=== PATIENT | female | born 1995 | race Caucasian/White ===

== ENCOUNTER 2016-12-24 20:31 | Emergency (ER) | payer MEDICARE ==
[~2016-12-24 20:31] MED LIST: ELAVIL 25 MG TA25 MG PO; GLUCOPHAGE1000 MG PO; HYDROCHLOROTHIA25 MG PO; INVOKANA300 MG PO; LOFIBRA160 MG PO; NEURONTIN 400400 MG PO; NORCO 7.5-3251 EACH PO; WELLBUTRIN SR150 M1 PO; ZESTRIL20 MG PO
[2016-12-25 01:19] LABS: HEMOGLOBIN 13.2 gm/dl (12.3-15.3); RED BLOOD COUNT 4.42 M/UL (4.00-5.10); WHITE BLOOD COUNT 12.7 K/UL (4.5-11.0)
[2016-12-25 01:39] LABS: BUN/CREATININE RATIO 12 (0-10)
== END 2016-12-25 03:45 | disposition home or self-care (01) ==
LOC: ER1 20:31
PROVIDERS: Physician Assistant Medical
DX: N39.0 Urinary tract infection, site not specified (principal); E11.9 Type 2 diabetes mellitus without complications; I10 Essential (primary) hypertension; F17.210 Nicotine dependence, cigarettes, uncomplicated; Z79.4 Long term (current) use of insulin
CPT/HCPCS: 80053; 81001; 82009; 82962; 84703; 85025; 87086; 96361; 96374; 99284; J2405; J7030

== ENCOUNTER 2020-10-18 16:42 | Emergency (ER) | payer OTHER ==
[~2020-10-18 16:42] MED LIST changes: +ACTOS15 MG PO; +AUGMENTIN 875-1 EACH PO; +CARDIZEM CD360 MG PO; +COLACE100 MG PO; +COREG 25MG TAB25 MG PO; +CYMBALTA60 MG PO; +FOLIC ACID 1 MG1 MG PO; +GABAPENTIN800 MG PO; +GLUCOPHAGE500 MG PO; +HUMULIN N100 UNIT/1 SC; +HUMULIN R100 UNIT/1 SC; +IBU600 MG PO; +KEFLEX500 MG PO; +LIPITOR TAB 2020 MG PO; +MACROBID 100 M100 MG PO; +NIACIN ER500 MG PO; +NORCO 5-325 TA1 EACH PO; +OMEGA 3 1,0001 EACH PO; +PHENERGAN 25 MG25 M1 PO; +PRENATAL TABLE1 EAC1 PO; +SPIRONOLACTONE1 EACH PO; +TRAMADOL HCL50 MG PO; +TRANDATE 100 M100 MG PO; +TRICOR145 MG PO; +TRULICITY1.5 MG/0.5 SQ; +ULTRAM50 MG PO; +VICTOZA 3-0.6 MG/0.1 SQ; +VITAMIN B-121000 MCG PO; +VITAMIN D32000 UNIT PO; +VITAMIN D35000 UNI1 PO; +VRAYLAR PO; +ZITHROMAX250 MG PO
[2020-10-18 18:52] LABS: HEMOGLOBIN 12.9 gm/dl (12.3-15.3); RED BLOOD COUNT 4.31 M/UL (4.00-5.10)
[2020-10-18 19:16] LABS: BUN/CREATININE RATIO 19 (0-10)
== END 2020-10-18 20:25 | disposition home or self-care (01) ==
LOC: ER1 16:42
PROVIDERS: Family Medicine
DX: E11.65 Type 2 diabetes mellitus with hyperglycemia (principal); R53.1 Weakness; I10 Essential (primary) hypertension; E11.40 Type 2 diabetes mellitus with diabetic neuropathy, unspecified; F17.210 Nicotine dependence, cigarettes, uncomplicated; Z79.4 Long term (current) use of insulin
CPT/HCPCS: 80053; 81001; 82550; 82553; 83874; 84439; 84443; 84484; 84703; 85025; 93005; 99285

== ENCOUNTER 2021-02-17 09:36 | Emergency (ER) | payer OTHER ==
[2021-02-17 11:52] LABS: HEMOGLOBIN 11.7 gm/dl (12.3-15.3); RED BLOOD COUNT 4.01 M/UL (4.00-5.10); WHITE BLOOD COUNT 12.3 K/UL (4.5-11.0)
[2021-02-17 12:15] LABS: BUN/CREATININE RATIO 8 (0-10)
== END 2021-02-17 13:45 | disposition left against medical advice (07) ==
LOC: ER1 09:36
PROVIDERS: Physician Assistant
DX: R07.9 Chest pain, unspecified (principal); R20.2 Paresthesia of skin; E11.9 Type 2 diabetes mellitus without complications; I10 Essential (primary) hypertension; F17.200 Nicotine dependence, unspecified, uncomplicated; Z90.49 Acquired absence of other specified parts of digestive tract
CPT/HCPCS: 71045; 80053; 82550; 82553; 83874; 84484; 85025; 93005; 99285

== ENCOUNTER 2021-08-26 13:10 | Emergency (ER) | payer OTHER ==
[2021-08-26 13:49] LABS: HEMOGLOBIN 11.9 gm/dl (12.3-15.3); RED BLOOD COUNT 4.26 M/UL (4.00-5.10); WHITE BLOOD COUNT 13.2 K/UL (4.5-11.0)
[2021-08-26 14:21] LABS: BUN/CREATININE RATIO 11 (0-10)
[2021-08-26] MEDS ORDERED: OMNICEF 300 MG300 MG PO (19:06)
== END 2021-08-26 20:10 | disposition home or self-care (01) ==
LOC: ER1 13:10
PROVIDERS: Physician Assistant
DX: R55 Syncope and collapse (principal); Z20.822 Contact with and (suspected) exposure to COVID-19; E11.9 Type 2 diabetes mellitus without complications; F17.210 Nicotine dependence, cigarettes, uncomplicated; I10 Essential (primary) hypertension; Z90.49 Acquired absence of other specified parts of digestive tract
CPT/HCPCS: 0240U; 70450; 71045; 80053; 81001; 82550; 82553; 82962; 83874; 83880; 84484; 84703; 85025; 85379; 87077; 87086; 87186; 93005; 99284

== ENCOUNTER 2022-03-23 11:24 | Emergency (ER) | payer OTHER ==
[~2022-03-23 11:24] MED LIST changes: +OMNICEF 300 MG300 MG PO
== END 2022-03-23 13:48 | disposition home or self-care (01) ==
LOC: ER1 11:24
DX: U07.1 COVID-19 (principal); E11.40 Type 2 diabetes mellitus with diabetic neuropathy, unspecified; F17.210 Nicotine dependence, cigarettes, uncomplicated
CPT/HCPCS: 0240U; 99283